=== PATIENT | male | born 1960 | race Caucasian/White ===

== ENCOUNTER 2019-05-29 20:07 | Emergency (ER) | payer BC ==
[~2019-05-29] VITALS: Ht 182.9 cm; Wt 89.8 kg
[2019-05-29] MEDS ORDERED: GLUCOPHAGE XR500 M1 PO (20:15)
[2019-05-29] MEDS ORDERED: CARVEDILOL12.5 MG PO (20:15)
[2019-05-29] MEDS ORDERED: ZESTRIL20 MG PO (20:16)
[2019-05-29] MEDS ORDERED: LANTUS SUBQ (20:16)
[2019-05-29] MEDS ORDERED: ATORVASTATIN CA80 MG PO (20:16)
[2019-05-29] MEDS ORDERED: ASA81BEC PO (20:16)
[2019-05-29 21:13] VITALS: BP 148/92
== END 2019-05-29 21:00 | disposition left against medical advice (07) ==
LOC: M.ERS 20:07
DX: Z53.21 Procedure and treatment not carried out due to patient leaving prior to being seen by health care provider (principal)

== ENCOUNTER 2021-06-06 01:18 | Inpatient (IN) | payer OTHER ==
[~2021-06-06] VITALS: Ht 182.9 cm; Wt 88.5 kg
[~2021-06-06 01:18] MED LIST: ASA81BEC PO; ATORVASTATIN CA80 MG PO; CARVEDILOL12.5 MG PO; LANTUS SUBQ; METFORMIN HCL500 M1 PO; ZESTRIL20 MG PO
[2021-06-06 01:21] VITALS: BP 196/111
[2021-06-06 01:59] LABS: ABSOLUTE BASOPHILS 0.1 thou/uL (0.0-0.2); ABSOLUTE EOSINOPHILS 0.3 thou/uL (0.0-0.7); ABSOLUTE LYMPHOCYTES 4.3 thou/uL (0.8-5.3); ABSOLUTE MONOCYTES 1.3 thou/uL (0.0-1.2); ABSOLUTE NEUTROPHILS 8.6 thou/uL (1.6-8.1); BASOPHILS 0.8 %; EOSINOPHILS 1.8 %; HEMATOCRIT 51.5 % (42.0-52.0); HEMOGLOBIN 17.3 gm/dL (14.0-18.0); LYMPHOCYTES 29.8 %; MCH 30.6 pg (26.0-34.0); MCHC 33.7 g/dL (28.0-37.0); MCV 90.9 fL (80.0-100.0); MONOCYTES 8.7 %; MPV 9.8 fl. (7.2-11.1); NUCLEATED RBCS 0 /100WBC; PLATELET COUNT* 206 thou/uL (150-400); POLYS 58.9 %; RBC 5.66 mil/uL (4.50-6.00); RDW-CV 13.9 % (10.5-14.5); WBC 14.6 thou/uL (4.0-11.0)
[2021-06-06 02:13] LABS: ALBUMIN 3.5 g/dL (3.4-5.0); CALCIUM 8.6 mg/dL (8.5-10.1); CREATININE 1.1 mg/dL (0.6-1.3); MAGNESIUM 1.7 mg/dL (1.8-2.4); POTASSIUM 3.4 mmol/L (3.5-5.1); TOTAL BILIRUBIN 0.9 mg/dL (<0.1-1.0); TOTAL PROTEIN 8.1 g/dL (6.4-8.2)
[2021-06-06 03:09] LABS: PCO2 44.7 mmHg (35.0-45.0)
[2021-06-06 03:12] LABS: PO2 259.2 mmHg (75.0-100.0); pH 7.283 (7.340-7.450)
[2021-06-06 04:07] LABS: INR 1.1; PROTIME 11.4 Seconds (9.20-11.50)
[2021-06-06 05:31] LABS: URINE BILIRUBIN NEGATIVE (Negative); URINE BLOOD 3+ (Negative); URINE COLOR YELLOW; URINE GLUCOSE-RANDOM 3+ (Negative); URINE KETONES TRACE (Negative); URINE LEUKOCYTES-REFLEX NEGATIVE (Negative); URINE NITRITE-REFLEX NEGATIVE (Negative); URINE PROTEIN 3+ (Negative); URINE SPECIFIC GRAVITY >= 1.030 (1.005-1.030); URINE UROBILINOGEN 0.2 E.U./dl (0.2-1.0)
[2021-06-06 05:32] LABS: URINE CLARITY HAZY
[2021-06-06 05:42] LABS: BE -4.6 mmol/L (-2 to +3); PCO2 37.1 mmHg (35.0-45.0); PO2 79.2 mmHg (75.0-100.0); pH 7.355 (7.340-7.450)
[2021-06-06 06:07] LABS: BACTERIA-REFLEX >30 Many /HPF (None Seen); CASTS None Seen /LPF (None Seen); CRYSTALS None Seen /LPF (None Seen); MUCUS 4-6 Moderate strn/LPF (None Seen); SQUAMOUS 0-3 Few /LPF (0-3); URINE RBC >20 Many /HPF (0-2); WBC CLUMPS Few (None Seen)
[2021-06-06 09:47] LABS: INFLUENZA A ANTIGEN Negative (Negative); INFLUENZA B ANTIGEN Negative (Negative)
[2021-06-06 10:10] VITALS: BP 153/86
--- NOTE | 2021-06-06 11:58 | EKG ---
[place] [address] ELECTROCARDIOGRAM REPORT Name: SP STEWARD JR Room: [place] [address] ADM IN [facility]#: [id number] Admission: 06/06/21 Attend Phys: Juan M Rai Discharge: Date of : 58 Date of Service: 06/06/21 0124 Report #: [id number] THIS REPORT FOR: //name// [facility] ED Test Date: 2021-06-06 Test Time: 01:24:53 Pat Name: SP STEWARD Department: Room: [facility] Gender: M Animal Care Assistant: : 1960 Requested By: Sujey Story Order Number: [id number] MD: Gurmeet Luciano Measurements Intervals [place] Rate: 106 P: 44 [place]: 127 QRS: -70 QRSD: 181 T: 106 QT: 373 QTc: 496 Interpretive Statements Sinus tachycardia Probable left atrial enlargement left axis LBBB No previous ECG available for comparison Electronically Signed On 06-06-2021 11:58:45 TRAFFIC MAINTENANCE OFFICER by Gurmeet Luciano [email or web address] <ELECTRONICALLY SIGNED> By: Gurmeet Luciano MD, [facility] 06/06/21 1158 0124 0124 Gurmeet Luciano MD, [facility] /EPI
[2021-06-06] MEDS ORDERED: CEFDINIR300 MG PO (12:30)
[2021-06-06 14:10] VITALS: BP 148/83
[2021-06-06 18:10] VITALS: BP 138/78
[2021-06-06 22:00] VITALS: BP 114/33
[2021-06-07] VITALS (15 sets, daily range): BP systolic 115–165; BP diastolic 53–104
[2021-06-07 08:38] LABS: CHOLESTEROL 126 mg/dL (<200); HDL CHOLESTEROL 39 mg/dL (>40); LDL CHOLESTEROL 61 mg/dL (<100); TC:HDL 3.2 Ratio (Not establshd); TRIGLYCERIDE 133 mg/dL (<150); VLDL 27 mg/dL (<40)
[2021-06-07 08:39] LABS: SERUM ASSESSMENT Clear
[2021-06-08 00:51] VITALS: BP 122/61
[2021-06-08 04:00] VITALS: BP 122/56
[2021-06-08 04:04] LABS: MCH 30.4 pg (26.0-34.0); MCHC 33.5 g/dL (28.0-37.0); MCV 90.6 fL (80.0-100.0); MPV 9.7 fl. (7.2-11.1); RBC 4.64 mil/uL (4.50-6.00); RDW-CV 14.3 % (10.5-14.5); WBC 6.1 thou/uL (4.0-11.0)
[2021-06-08 04:16] LABS: HEMOGLOBIN 14.1 gm/dL (14.0-18.0)
[2021-06-08 05:46] LABS: CALCIUM 7.6 mg/dL (8.5-10.1); CREATININE 0.9 mg/dL (0.6-1.3); POTASSIUM 3.4 mmol/L (3.5-5.1)
[2021-06-08 08:52] VITALS: BP 144/70
--- NOTE | 2021-06-08 09:51 | CARD ---
[address] [address] CARDIAC CATH REPORT Name: SP STEWARD JR Room: [address] IN ..#: [id number] Admission: 06/06/21 Attend Phys: Talon Etienne Discharge: Date of : 58 Report #: [id number] THIS REPORT FOR: cc: FAM - No family physician/PCP FAM - No family physician/PCP Gurmeet Luciano MD [facility] ~ APPROVED REPORT Study performed: 06/07/2021 08:48:53 Patient Details Patient Status: ED Room #: The patient is a 60 year-old male Event Personnel Gurmeet Luciano Associate Sales Representative, Allyson Nichols RN RN, Lea Camacho RN Monitor, Annie PaulinoIS Scrub Procedures Performed Art Access - R radial artery Left Heart Cath w/or w/o Coronaries [id number] [facility] Hemostasis with Hemoband Indication Non-STEMI , Dyspnea, Chest pain Risk Factors Hypercholesterolemia, Hypertension, Diabetes Tobacco History () Previous Procedures/Diagnoses Previous PCI Admission/Lab Medications/Medications given during procedure Aspirin, Heparin Unfract. Procedure Narrative The patient was brought urgently to the Cardiac Catheterization Laboratory and was prepped and draped in a sterile manner. The right wrist was infiltrated with 2% Lidocaine subcutaneous anesthesia. IV conscious sedation was used throughout procedure with appropriate monitoring and was performed in the presence of a registered nurse who was an independent trained observer other than the physician performing the procedure. A Exchange Wire .035 260cm sheath was inserted into the right radial artery. [place] [address] CARDIAC CATH REPORT Name: SP STEWARD JR Room: [address] IN [facility].#: [id number] Admission: 06/06/21 Attend Phys: Talon Etienne Discharge: Date of : 58 Report #: [id number] performed using coronary diagnostic catheters. The right coronary system was accessed and visualized with a Diagnostic JR4 catheter. The left coronary system was accessed and visualized with a Diagnostic JL4 catheter. The left ventricle was accessed and visualized with a DiagnosticJR4 and pigtail catheter. Left ventricular/Aortic Valve gradient assessed via catheter pullback. Closure device was deployed with a 6 Fr vascband. The patient tolerated the procedure well and there were no complications associated with the procedure. There was no hematoma. A 24 cm Radial band was placed on Right radial artery and 9ml of Air injected into bladder to gain hamostasis Intraoperative Conscious Sedation Sedation start time: 9:29 Case end Time: 9:59 Fentanyl 25 mcg Versed 2 mg Fluoro Time: 3.5 minutes Dose: DAP 72775 cGycm2 1002.35 mGy Contrast Type and Amount: 140 ml Visipaque Coronary Angiography The patient's coronary anatomy is co- dominant. Diagnostic Cath Left Main 0% stenosis LAD stent in the proximal LAD had 0% restenosis Circumflex 0% stenosis OM2 medium sized vessel with 80% proximal stenosis Right Coronary 50% proximal stenosis Left Ventriculography The left ventricular ejection fraction is estimated to be 20-25%. There is 1+ mitral insufficiency. Global hypokinesis of the left ventricle Hemodynamics The aortic pressure is 128/66 mmHg with a mean of 24 mmHg. The left ventricular pressure is 113/13 mmHg with a mean of mmHg. The left ventricular end diastolic pressure is 20 mmHg. There was no gradient across the aortic valve upon pullback. Pullback from the left ventricle to the aorta revealed no gradient across the [place] [address] CARDIAC CATH REPORT Name: SP STEWARD JR Room: [address] IN [facility]#: [id number] Admission: 06/06/21 Attend Phys: Talon Etienne Discharge: Date of : 58 Report #: [id number] 1. no restenosis of a stent in the proximal LAD 2. LVEF 20-25% Recommendations Cardiac Rehabilitation Referral Aggressive Medical Therapy <ELECTRONICALLY SIGNED> By: Gurmeet Luciano MD, [facility] 06/08/2150 9 Daamaury Luciano MD, FACC /INF
[2021-06-08 12:57] VITALS: BP 135/61
--- NOTE | 2021-06-08 12:59 | 2DMMODE ---
[place] [address] 2 D/M-MODE ECHOCARDIOGRAM Name: SP STEWARD JR Room: [address] IN [facility]#: [id number] Admission: 06/06/21 Attend Phys: Juan M Rai Discharge: Date of : 58 Date of Service: 06/08/21 1259 Report #: [id number] THIS REPORT FOR: cc: FAM - No family physician/PCP FAM - No family physician/PCP Paul Foster MD [facility] ~ APPROVED REPORT Study performed: 06/08/2021 11:43:09 EXAM: Comprehensive 2D, Doppler, and color-flow Echocardiogram Patient Location: In-Patient Room #: [facility] Status: routine BSA: 2.11 HR: 64 bpm BP: 144/70 mmHg Rhythm: NSR Other Information Study Quality: Good Indications Acute MD 2D Dimensions IVSd: 12.48 (7-11mm) LVOT Diam: 20.66 (18-24mm) LVDd: 58.22 mm PWd: 12.06 (7-11mm) Ascending Ao: 34.77 (22-36mm) LVDs: 45.41 (25-40mm) Aortic Root: 30.74 mm M-Mode Dimensions LVDd: 67.13 (40-56mm) FS(%): 27.04 % LVDs: 48.98 (20-38mm) LVEF(%): 51.51 (>50%) Volumes Left Atrial Volume (Systole) LA ESV Index: 36.10 mL/m2 Aortic Valve AoV Peak Yaya.: 1.53 m/[place] [address] 2 D/M-MODE ECHOCARDIOGRAM Name: SP STEWARD JR Room: [address]#: [id number] Admission: 06/06/21 Attend Phys: Juan M Rai Discharge: Date of : 58 Date of Service: 06/08/21 1259 Report #: [id number] AO Peak Gr.: 9.41 mmHg LVOT Max P.27 mmHg AO Mean Gr.: 4.69 mmHg LVOT Mean P.31 mmHg LVOT Max V: 0.90 m/s AO V2 VTI: 26.95 cm LVOT Mean V: 0.51 m/s MIRNA (VTI): 1.97 cm2 LVOT V1 VTI: 15.81 cm Mitral Valve E/A Ratio: 1.14 MV Decel. Time: 217.10 ms MV E Max Yaya.: 1.15 m/s MV PHT: 62.96 ms MVA (PHT): 3.49 cm2 TDI E/Lateral E': 8.85 E/Medial E': 19.17 Medial E' Yaya.: 0.06 m/s Lateral E' Yaya.: 0.13 m/s Pulmonary Valve PV Peak Yaya.: 0.90 m/s PV Peak Gr.: 3.27 mmHg Tricuspid Valve RAP Estimate: 5.00 mmHg TR Peak Gr.: 28.92 mmHg RVSP: 33.00 mmHg PA Pressure: 33.00 mmHg Left Ventricle Left ventricle is mildly dilated. There is normal LV segmental wall motion. There is normal left ventricular wall thickness. Left ventricular systolic function is moderately decreased. LVEF is 35%. Grade IV - fixed restrictive diastolic dysfunction. Right Ventricle The right ventricle is normal size. The right ventricular systolic function is normal. Atria Left atrium is mildly dilated. The right atrium size is normal. Aortic Valve Mild aortic valve sclerosis. No aortic regurgitation is present. There is no aortic valvular stenosis. Mitral Valve The mitral valve is normal in structure. [place] [address] 2 D/M-MODE ECHOCARDIOGRAM Name: SP STEWARD JR Room: [address] IN [facility]#: [id number] Admission: 06/06/21 Attend Phys: Juan M Rai Discharge: Date of : 58 Date of Service: 06/08/21 1259 Report #: [id number] No evidence of mitral valve stenosis. Tricuspid Valve The tricuspid valve is normal in structure. Trace tricuspid regurgitation. Mild pulmonary hypertension. Pulmonic Valve The pulmonary valve is normal in structure. Trace pulmonic regurgitation. Great Vessels The aortic root is normal in size. IVC is normal in size and collapses >50% with inspiration. Pericardium There is no pericardial effusion. <Conclusion> Left ventricle is mildly dilated. There is normal left ventricular wall thickness. Left ventricular systolic function is moderately decreased. LVEF is 35%. The right ventricle is normal size. Left atrium is mildly dilated. Mild aortic valve sclerosis. No aortic regurgitation is present. There is no aortic valvular stenosis. The mitral valve is normal in structure. Mild mitral regurgitation. The tricuspid valve is normal in structure. Trace tricuspid regurgitation. Mild pulmonary hypertension. IVC is normal in size and collapses >50% with inspiration. There is no pericardial effusion. There is normal LV segmental wall motion. <ELECTRONICALLY SIGNED> By: Paul Foster MD, FACC 06/08/21 1259 1259 1259 Paul Foster MD, FACC /INF
[2021-06-08 16:42] VITALS: BP 128/61
--- NOTE | 2021-06-08 21:35 | CON ---
[address] [address] CONSULTATION Name: BINSP Dev COLUNGA Room: [address] IN .R.#: [id number] Admission: 06/06/21 Attend Phys: Talon Etienne Discharge: Date of : 58 Report #: [id number] THIS REPORT FOR: cc: HEMA - No family physician/PCP FAM - No family physician/PCP Derrick Aguilera MD ~ Consult has been requested by Dr. Rai. INDICATION FOR CONSULTATION: Acute hypoxemic respiratory failure/COVID-19. HISTORY OF PRESENT ILLNESS: A 60-year-old gentleman, past medical history is as mentioned below. This does include a previous reported history of COPD. He is an active smoker; however, I do not see any medications for COPD listed on his home medication list. The patient had received 1 dose for COVID-19 vaccine just one day before he became symptomatic. He presented with acute respiratory failure with acute shortness of breath as well as significant coughing. The patient initially did have significant metabolic acidosis. He also at one point was on BiPAP with 60% FiO2. His troponin I was significantly elevated and therefore, an echocardiogram was performed, it did show a significant reduction in left ventricular ejection fraction to only 35%. He did subsequently undergo a cardiac catheterization, only minor coronary artery lesions were seen, which did not require stenting. The patient now is feeling significantly better. He is now on room air. His shortness of breath is significantly better. He does not have much sputum production. He does not have swelling of lower extremities or calf pain. REVIEW OF SYSTEMS: For 12 points is negative except as mentioned above. PAST MEDICAL HISTORY: COPD as mentioned on the records; however, I do not see any COPD medications on his home medication list, coronary artery disease, status post stents. He has had a myocardial infarction in the past as well. As noted, his left ventricular ejection fraction is now 35%. I do not have a previous measure of his left ventricular ejection fraction available. Stroke, hypertension, diabetes. SOCIAL HISTORY: Extensive history of smoking. He says he still smokes about half a pack or more a day. No known history of heavy alcohol use or illegal drug use. CURRENT MEDICATIONS: List in [facility] reviewed. HOME MEDICATIONS: List [place] [address] CONSULTATION Name: SP STEWARD JR Room: [address]#: [id number] Admission: 06/06/21 Attend Phys: Talon Etienne Discharge: Date of : 58 Report #: [id number] FAMILY HISTORY: No pertinent family history. ALLERGIES: HE IS REPORTED TO BE ALLERGIC TO PENICILLINS. PHYSICAL EXAMINATION: GENERAL: He is alert, awake and oriented, does not appear to be in any distress. VITAL SIGNS: Has a pulse of 64 and a blood pressure of 135/61. He is breathing around 14-16. He is saturating 94-95%. He is not on supplemental oxygen, afebrile with a temperature of 36.6. HEENT: Head is normocephalic and atraumatic. NECK: Does not show raised JVP. CHEST: Clear to auscultation. HEART: Regular. There is no murmur. ABDOMEN: Soft and nontender. EXTREMITIES: Lower extremities show no edema and no calf tenderness. LABORATORY DATA: The patient had a CTA chest performed 2 days ago, it does show bilateral infiltrates consistent with COVID-19. There is a large granuloma on the right side. There is some mild mediastinal lymphadenopathy noted as well. The patient's lab work is in [facility] and this is reviewed. ASSESSMENT AND PLAN: 1. Acute hypoxemic respiratory failure secondary to COVID-19. He is already feeling better and he is now down to room air. Recommend avoiding supine sleep. Recommend ambulation. 2. COVID-19. I discussed with the patient regarding the use of remdesivir, although he is not on supplemental oxygen. He prefers to hold off. He is on Solu-Medrol at 62.5 every 8 hours. He does not appear to be bronchospastic anymore at this time. We would therefore go ahead and cut this down to 6 mg of Decadron daily. 3. Pulmonary infiltrates. The patient says he would rather avoid antibiotics unless there is a strong indication. I did order a chest x-ray today. We will review and advise. However, I do not see a strong indication for antibiotics. At this time primarily infiltrates are secondary to COVID-19 and therefore, tentatively I am planning to hold off. 4. Systolic congestive heart failure/elevated troponin I, not known to me if the decrease in left ventricular ejection fraction is new or old. I would defer followup to the Cardiology Service. 5. Chronic obstructive pulmonary disease. I cut back steroid as above. He remains on nebulized bronchodilators. I will review the chest x-ray when performed and then advised if there are any additional suggestions. Otherwise, I would see him p.r.n. Please call if [address] [address] CONSULTATION Name: SP STEWARD JR Room: [address] IN [facility].#: [id number] Admission: 06/06/21 Attend Phys: Talon Etienne Discharge: Date of : 58 Report #: [id number] questions. Thanks for this consultation. <ELECTRONICALLY SIGNED> By: Derrick Aguilera MD 06/08/21 2135 1506 1917Asujatha Aguilera MD /nt
[2021-06-08 23:16] LABS: MAGNESIUM 2.2 mg/dL (1.8-2.4)
[2021-06-09] VITALS: BP 138/71
[2021-06-09 04:32] VITALS: BP 129/75
[2021-06-09 05:29] LABS: CALCIUM 7.7 mg/dL (8.5-10.1); CREATININE 0.9 mg/dL (0.6-1.3)
[2021-06-09] MEDS ORDERED: DECADRON6 MG PO (08:18)
[2021-06-09] MEDS ORDERED: SPIRONOLACTONE25 MG PO (08:19)
[2021-06-09] MEDS ORDERED: LASIX 40 MG TAB40 MG PO (08:19)
[2021-06-09 09:00] VITALS: BP 147/91
[2021-06-09 11:30] VITALS: BP 124/86
[2021-06-09 11:58] VITALS: BP 147/91
== END 2021-06-09 12:00 | disposition home or self-care (01) | DRG 280 ==
LOC: M.ERS 01:18 → M.TBA-ER 06:10 → M.ORTHSURG 06-07 13:52
PROVIDERS: Internal Medicine; Internal Medicine Cardiovascular Disease; Personal Emergency Response Attendant; Registered Nurse; ADMIT Internal Medicine; ATTEND Internal Medicine
DX: I21.4 Non-ST elevation (NSTEMI) myocardial infarction (principal); I50.43 Acute on chronic combined systolic (congestive) and diastolic (congestive) heart failure; U07.1 COVID-19; J12.82 Pneumonia due to coronavirus disease 2019; I11.0 Hypertensive heart disease with heart failure; I25.10 Atherosclerotic heart disease of native coronary artery without angina pectoris; E11.9 Type 2 diabetes mellitus without complications; E78.5 Hyperlipidemia, unspecified; F17.210 Nicotine dependence, cigarettes, uncomplicated